=== PATIENT | male | born 1975 | race Caucasian/White ===

== ENCOUNTER → 2017-09-24 | Outpatient (CLI) | payer OTHER ==
[~2017-09-24] MED LIST: ALEVE220 M2 PO; BENTYL10 MG PO; CLA 1,000 MG1000 MG PO; FISH OIL 1,0001 EAC7 PO; IBUPROFEN200 M1 PO; MEN'S MULTI-VI1 EACH PO; PERCOCET 5/31 TABLET PO; ZOFRAN4 MG PO
== END | disposition home or self-care (01) ==
LOC: RAD 08:49
DX: M79.662 Pain in left lower leg (principal); M76.62 Achilles tendinitis, left leg
CPT/HCPCS: 93971